=== PATIENT | female | born 1980 | race African-American/Black ===

== ENCOUNTER 2020-11-14 22:10 | Observation (INO) | payer BC, OTHER ==
[2020-11-15 02:51] LABS: EPI CELLS 6 /uL (0-25.1); HYALINE CASTS 0 /uL (0-3.1); URINE APPEARANCE CLEAR; URINE BACTERIA 6049 /uL (0-1359); URINE BILIRUBIN NEGATIVE (NEGATIVE); URINE COLOR YELLOW; URINE GLUCOSE (UA) NEGATIVE (NEGATIVE); URINE KETONE NEGATIVE (NEGATIVE); URINE LEUK ESTERASE TRACE (NEGATIVE); URINE NITRITE POSITIVE (NEGATIVE); URINE PROTEIN NEGATIVE (NEGATIVE); URINE RBC 1 /uL (0-23.9); URINE UROBILINOGEN 0.2 mg/dL (0.2-1.0); URINE WBC 16 /uL (0-25.8)
[2020-11-15 03:01] LABS: INR 0.86 (0.83-1.09); PROTHROMBIN TIME (PATIENT) 10.4 SEC (9.7-13.0)
[2020-11-15 03:04] LABS: ACTIVATED PTT 26.2 SECONDS (25.2-36.5)
[2020-11-15 03:05] LABS: ALBUMIN 3.7 g/dl (3.4-5.0); CALCIUM 8.7 mg/dL (8.5-10.1)
[2020-11-15 03:06] LABS: BLOOD UREA NITROGEN 12.3 mg/dL (7-18)
[2020-11-15 03:10] LABS: BILIRUBIN,TOTAL 0.4 mg/dL (0.2-1); TOT PROT 6.9 g/dl (6.4-8.2)
[2020-11-15 03:16] LABS: CREATININE 0.6 mg/dL (0.55-1.3)
[2020-11-15 03:53] LABS: HEMATOCRIT 20.9 % (32.4-45.2); MCHC 27.4 g/dl (32.0-36.0); MEAN CELL VOLUME 53.3 fl (80-96); MEAN PLT VOLUME 8.2 fl (7.5-11.1); PLATELET COUNT 363 10^3/uL (134-434); RBC 3.93 M/mm3 (3.60-5.2); RDW 22.1 % (11.6-15.6)
[2020-11-15 04:01] LABS: N-TERMINAL BNP 30.7 pg/ml (5-125)
[2020-11-15 04:10] LABS: MCH 14.6 pg (25.7-33.7)
[2020-11-15 04:11] LABS: HEMOGLOBIN 5.7 GM/dL (10.7-15.3)
[2020-11-15 07:15] LABS: ANISOCYTOSIS 2+; MACROCYTOSIS 1+; PLATELET ESTIMATE NORMAL; ROULEAU 2+
[2020-11-15] MEDS ORDERED: ONDANSETRON 4 MG/2 ML VIAL IVPUSH PRN (08:26)
[2020-11-15] MEDS ORDERED: ACETAMINOPHEN 325 MG TABLET (FP) PO PRN (08:26)
[2020-11-15 10:23] LABS: RETICULOCYTES 2.23 % (0.5-1.5)
[2020-11-15 11:51] VITALS: BMI 17.9
[2020-11-15] MEDS: PANTOPRAZOLE 20 MG TABLET PO SCH (14:19)
[2020-11-16 07:27] LABS: BLOOD UREA NITROGEN 10.8 mg/dL (7-18)
[2020-11-16 07:29] LABS: BILIRUBIN,TOTAL 0.9 mg/dL (0.2-1); TOT PROT 7.3 g/dl (6.4-8.2)
[2020-11-16 07:30] LABS: CALCIUM 9.3 mg/dL (8.5-10.1); CREATININE 0.7 mg/dL (0.55-1.3)
[2020-11-16 07:59] LABS: HEMATOCRIT 33.2 % (32.4-45.2); HEMOGLOBIN 9.7 GM/dL (10.7-15.3); MCHC 29.3 g/dl (32.0-36.0); MEAN CELL VOLUME 61.1 fl (80-96); MEAN PLT VOLUME 8.7 fl (7.5-11.1); PLATELET COUNT 391 10^3/uL (134-434); RBC 5.43 M/mm3 (3.60-5.2); RDW 31.1 % (11.6-15.6); WHITE BLOOD COUNT 6.1 K/mm3 (4.0-10.0)
[2020-11-16] MEDS ORDERED: PT OWN MED DRAWER 7, Y5N ONE (08:33)
[2020-11-16 08:52] LABS: MCH 17.9 pg (25.7-33.7)
[2020-11-16] MEDS: PANTOPRAZOLE 20 MG TABLET PO SCH (09:42)
[2020-11-16] MEDS ORDERED: IRON SUCROSE INJECTION 200 MG in SODIUM CHLORIDE 90 ML IVPB ONE (10:00)
[2020-11-16 10:19] LABS: ANISOCYTOSIS 2+; MACROCYTOSIS 0; OVALOCYTE 1+; PLATELET ESTIMATE NORMAL; TARGET CELLS 1+; TEAR DROP CELLS 1+
[2020-11-16 13:31] VITALS: BP 123/81; PULSE 70; TEMP 98.5
== END 2020-11-16 16:30 | disposition home or self-care (01) ==
LOC: JER 22:10 → JERBED 11-15 05:09 → J7W 11-15 10:22
PROVIDERS: ADMIT Student in an Organized Health Care Education/Training Program; ATTEND Internal Medicine
PROC: 30233N1 Transfusion of Nonautologous Red Blood Cells into Peripheral Vein, Percutaneous Approach (ICD-10-PCS; principal; 2020-11-15)
PROC: 3E033GC Introduction of Other Therapeutic Substance into Peripheral Vein, Percutaneous Approach (ICD-10-PCS; 2020-11-15)
DX: D50.9 Iron deficiency anemia, unspecified (principal); R22.43 Localized swelling, mass and lump, lower limb, bilateral; N92.0 Excessive and frequent menstruation with regular cycle; E05.90 Thyrotoxicosis, unspecified without thyrotoxic crisis or storm; D25.9 Leiomyoma of uterus, unspecified; Z87.891 Personal history of nicotine dependence
CPT/HCPCS: 36415; 36430; 71045-TC-FY; 71046-TC-FY; 76830-TC; 80053; 81003; 82550; 82728; 83010; 83540; 83550; 83615; 83880; 84439; 84443; 84484; 84703; 85025; 85045; 85610; 85730; 86850; 86900; 86901; 86922; 87086; 87186; 93005; 93010; 93970-TC; 96365; 99285-25; C9803; G0378; J1756; P9058; U0003; U0005

== ENCOUNTER 2020-11-23 13:59 | Day surgery (SDC) | payer BC ==
[2020-11-23] MEDS ORDERED: FERRIC CARBOXYMALTOSE 750 MG in SODIUM CHLORIDE 250 ML IVPB ONE (15:00)
[2020-11-23 17:10] VITALS: TEMP 98.5
[2020-11-23 17:12] VITALS: BP 138/95; PULSE 74
== END 2020-11-23 15:35 | disposition home or self-care (01) ==
LOC: JINFUSION 13:59 → J7W 14:00 → JINFUSION 14:00
PROVIDERS: ATTEND Internal Medicine
PROC: 3E033GC Introduction of Other Therapeutic Substance into Peripheral Vein, Percutaneous Approach (ICD-10-PCS; principal; 2020-11-23)
DX: D50.9 Iron deficiency anemia, unspecified (principal)
CPT/HCPCS: 96365; J1439

== ENCOUNTER 2020-11-30 12:45 | Day surgery (SDC) | payer BC ==
[2020-11-30] MEDS ORDERED: FERRIC CARBOXYMALTOSE 750 MG in SODIUM CHLORIDE 250 ML IVPB ONE (13:00)
[2020-11-30 15:37] VITALS: TEMP 98.8
[2020-11-30 15:40] VITALS: BP 104/48; PULSE 72
== END 2020-11-30 14:10 | disposition home or self-care (01) ==
LOC: JINFUSION 12:45
PROVIDERS: ATTEND Internal Medicine
PROC: 3E033GC Introduction of Other Therapeutic Substance into Peripheral Vein, Percutaneous Approach (ICD-10-PCS; principal; 2020-11-30)
DX: D50.9 Iron deficiency anemia, unspecified (principal)
CPT/HCPCS: 96365; J1439

== ENCOUNTER 2020-12-04 16:18 | Emergency (ER) | payer BC ==
[2020-12-04 16:45] VITALS: BP 116/75; PULSE 87; TEMP 98; BMI 22.1
[2020-12-04] MEDS ORDERED: ACETAMINOPHEN 325 MG TABLET (FP) PO ONE (20:00)
[2020-12-04] MEDS ORDERED: ACETAMINOPHEN 325 MG TABLET (FP) ONE (20:10)
[2020-12-04 20:36] LABS: BASO % 0.9 % (0-2.0); EOS % 4.4 % (0-4.5); HEMATOCRIT 28.2 % (32.4-45.2); HEMOGLOBIN 8.6 GM/dL (10.7-15.3); MCHC 30.4 g/dl (32.0-36.0); MEAN CELL VOLUME 63.7 fl (80-96); MONO % 9.8 % (3.8-10.2); NEUT % 58.9 % (42.8-82.8); RBC 4.43 M/mm3 (3.60-5.2); RDW 36.1 % (11.6-15.6); WHITE BLOOD COUNT 7.4 K/mm3 (4.0-10.0)
[2020-12-04 20:41] LABS: MCH 19.4 pg (25.7-33.7)
[2020-12-04 20:43] LABS: INR 0.92 (0.83-1.09); PROTHROMBIN TIME (PATIENT) 11.3 SEC (9.7-13.0)
[2020-12-04 20:46] LABS: ACTIVATED PTT 28.4 SECONDS (25.2-36.5)
[2020-12-04 20:59] LABS: CALCIUM 8.1 mg/dL (8.5-10.1)
[2020-12-04 21:00] LABS: ALBUMIN 3.7 g/dl (3.4-5.0); BLOOD UREA NITROGEN 12.5 mg/dL (7-18)
[2020-12-04 21:03] LABS: CREATININE 0.6 mg/dL (0.55-1.3)
[2020-12-04 21:04] LABS: BILIRUBIN,TOTAL 0.3 mg/dL (0.2-1); TOT PROT 6.6 g/dl (6.4-8.2)
[2020-12-04 22:17] LABS: ANISOCYTOSIS 3+; MACROCYTOSIS 0; PLATELET ESTIMATE NORMAL
[2020-12-04 22:27] LABS: MEAN PLT VOLUME 8.4 fl (7.5-11.1); PLATELET COUNT 156 10^3/uL (134-434)
== END 2020-12-04 22:12 | disposition home or self-care (01) ==
LOC: JER 16:18
DX: N92.0 Excessive and frequent menstruation with regular cycle (principal)
CPT/HCPCS: 36415; 80053; 84703; 85025; 85610; 85730; 86850; 86900; 86901; 99283-25